=== PATIENT | female | born 1955 | race Caucasian/White ===

== ENCOUNTER → 2020-02-24 12:33 | Outpatient (CLI) | payer MEDICARE, SELFPAY ==
--- NOTE | ~2020-02-24 | MM_ITS ---
EXAMINATION: MM screening [facility] w [facility] HISTORY: Screening mammogram TECHNIQUE: Craniocaudal and mediolateral oblique 3-D tomosynthesis images were obtained and synthetic 2-D images were generated. CAD analysis was submitted and interpreted. COMPARISON: No prior mammogram is available for comparison at this institution. BREAST PARENCHYMAL COMPOSITION: There are scattered areas of fibroglandular density. FINDINGS: There is no evidence of suspicious mass, calcification, or architectural distortion to sugg est malignancy in either breast. There has been no suspicious interval change. Scattered benign calc ifications. IMPRESSION: 1. No mammographic evidence of malignancy. 2. Recommend routine screening mammography in one year. BI-RADS Category 2: Benign finding(s). Reviewed, dictated and finalized at location A.
== END ==
PROVIDERS: Visit Provider Nurse Practitioner Obstetrics & Gynecology
DX: Z12.31 Encounter for screening mammogram for malignant neoplasm of breast (principal)
CPT/HCPCS: 77063; 77067

== ENCOUNTER → 2021-11-10 13:51 | Outpatient (CLI) | payer MEDICARE, SELFPAY ==
--- NOTE | ~2021-11-10 | MM_ITS ---
EXAMINATION: MM screening [facility] BI w [facility]ora HISTORY: Screening mammogram TECHNIQUE: Craniocaudal and mediolateral oblique 3-D tomosynthesis images were obtained and synthetic 2-D images were generated. CAD analysis was submitted and interpreted. COMPARISON: 02/24/2020, 06/11/2018, 11/15/2017, 09/28/2017 BREAST PARENCHYMAL COMPOSITION: The breasts are almost entirely fatty. FINDINGS: Scattered benign-appearing calcifications are present. There is no suspicious mass, calcifi cation, or architectural distortion to suggest malignancy in either breast. There has been no suspici ous interval change. IMPRESSION: 1. No mammographic evidence of malignancy. 2. Recommend routine screening mammography in one year. BI-RADS Category 2: Benign finding(s). Reviewed, dictated and finalized at location A.
== END ==
PROVIDERS: PCP Internal Medicine; Visit Provider Internal Medicine
DX: Z12.31 Encounter for screening mammogram for malignant neoplasm of breast (principal)
CPT/HCPCS: 77063; 77067

== ENCOUNTER → 2023-01-22 15:27 | Outpatient (CLI) | payer MEDICARE, SELFPAY ==
--- NOTE | ~2023-01-22 | XR_ITS ---
EXAMINATION:XR_[id number], XR lumbar spine 2-3V, XR thoracic spine 2V DATE: 01/22/2023 15:56 INDICATION: Neck pain TECHNIQUE: 1. AP, lateral, lateral swimmers and odontoid views of the cervical spine are provided. 2. AP and lateral views of the thoracic spine were obtained 3. AP, lateral and coned-down lateral lumbosacral views of the lumbar spine were obtained. COMPARISON: None FINDINGS: Cervical spine: Straightening of the normal cervical lordosis. Odontoid is intact with moderate osteoarthritis at the atlantoaxial interval. Vertebral body heights are normal. Moderate disc height loss with prominent e ndplate osteophytes at C4-C5, C5-C6 and C6-7 and mild disc height loss at C3-C4. Multilevel severe ce rvical uncovertebral and moderate to severe facet osteoarthritis. Prevertebral soft tissues are norm al. Thoracic spine: Alignment is normal. Vertebral body heights are normal. Moderate disc height loss T10-T11 and mild di sc height loss at and mild degenerative endplate changes at multiple levels in the mid to lower thora cic spine. Visualized lungs are clear. Heart size is normal. Lumbar spine: 7 degrees lumbar levocurvature. Sagittal alignment is normal. Vertebral body heights are normal. Mode rate to severe disc height loss at L5-S1 and moderate disc height loss at L2-L3 and mild disc height loss at remaining lumbar levels. Severe bilateral lower lumbar facet osteoarthritis. Mild right and m oderate left sacroiliac osteoarthritis. IMPRESSION: 1. Moderate cervical and thoracic and moderate to severe lumbar spondylosis. Reviewed, dictated and finalized at location A. IMPRESSION: 1. Moderate cervical and thoracic and moderate to severe lumbar spondylosis. IMPRESSION: 1. Moderate cervical and thoracic and moderate to severe lumbar spondylosis.
== END ==
PROVIDERS: PCP Internal Medicine; Visit Provider Internal Medicine
DX: M47.892 Other spondylosis, cervical region (principal); M47.896 Other spondylosis, lumbar region
CPT/HCPCS: 72040; 72070; 72100

== ENCOUNTER 2023-02-09 13:39 | Outpatient (CLI) | payer MEDICARE, SELFPAY ==
--- NOTE | ~2023-02-09 | MR_ITS ---
EXAMINATION: MR lumbar spine wo con DATE: 02/09/2023 14:18 INDICATION: Dorsalgia, unspecified. TECHNIQUE: Magnetic resonance imaging (MRI) of the lumbar spine was performed without intravenous con trast. Sequences included sagittal T2-weighted FSE, sagittal T2-weighted FS FSE, sagittal T1-weighted FSE, and axial T2-weighted FSE. COMPARISON: Lumbar spine MRI 05/07/2012 FINDINGS: There is 6 degrees levocurvature of lumbar spine. There is 3 mm retrolisthesis of L2 on L3. Vertebral body heights are normal. There is mildly decreased disc height at L1-L2, moderately decrea sed disc height at L2-L3, severely decreased disc height at L3-L4, moderately decreased disc height a t L4-L5, and severely decreased disc height at L5-S1 with endplate remodeling. The distal spinal cord signal intensity is normal. The conus medullaris is at L1. The following disc levels are specificall y discussed: L1-L2: The disc is bulging and has an annular fissure. There is moderate right and mild left facet sabra int osteoarthritis. There is mild bilateral neural foraminal stenosis. There is mild central canal st enosis. L2-L3: The disc is bulging and has an annular fissure. There is moderate bilateral facet joint osteoa rthritis. There is mild bilateral neural foraminal stenosis. There is mild central canal stenosis. L3-L4: The disc is bulging. There is severe bilateral facet joint osteoarthritis. There is mild bilat eral neural foraminal stenosis. There is mild central canal stenosis. L4-L5: The disc is bulging and has an annular fissure. There is severe bilateral facet joint osteoart hritis. There is mild bilateral neural foraminal stenosis. There is mild central canal stenosis. L5-S1: The disc is bulging. There is severe bilateral facet joint osteoarthritis. There is mild bilat eral neural foraminal stenosis. There is mild central canal stenosis. IMPRESSION: 1. Severe lumbar spondylosis, worsened from 05/07/2012. Reviewed, dictated and finalized at location A.
== END 2023-02-09 13:40 | disposition home or self-care (01) ==
PROVIDERS: PCP Internal Medicine; Visit Provider Internal Medicine
DX: M47.896 Other spondylosis, lumbar region (principal)
CPT/HCPCS: 72148

== ENCOUNTER 2023-02-15 12:30 | Outpatient (RCR) | payer MEDICARE, SELFPAY ==
--- NOTE | 2023-01-22 16:24 | OPREHPOC ---
Outpatient Therapy Plan of Care This is a Multidisciplinary Plan of Care that may contain components documented by all disciplines (PT, OT, and ST.) PT Problem 1 PT Problem #1 Knowledge Deficit PT Goal 1 Goal Pt to be IND with issued HEP Target Visit 8 PT Problem 2 PT Problem #2 Pain PT Goal 1 Goal Pt to report pain no greater than 3/10 in the last week Target Visit 8 PT Goal 2 Goal Pt to report 75% improvement in overall symptoms Target Visit 8 PT Problem 3 PT Problem #3 Impaired Range of Motion PT Goal 1 Goal Pt to report no increase in pain with R hip flexion Target Visit 8 PT Goal 2 Goal Pt to demonstrate active lumbar ROM that is pain free Target Visit 8 PT Problem 4 PT Problem #4 Impaired Gait PT Goal 1 Goal Pt to return to ambulation without AD Target Visit 8 PT Goal 2 Goal Pt to improve 2 min walk distance from 215ft to 300ft Target Visit 8 PT Problem 5 PT Problem #5 Impaired Functional Mobil PT Goal 1 Goal Pt to be able to lift 10lb box from ground level Target Visit 8 PT Goal 2 Goal Pt to ascend/descend stairs with a reciprocal pattern. Target Visit 8
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
--- NOTE | 2023-01-30 13:28 | PCPTNOTE ---
Patient called & cancelled scheduled appointment this date due to getting confused about her appointment time and not being able to make it.
--- NOTE | 2023-02-09 11:34 | PCPTNOTE ---
Patient no showed to appointment this date. Called and spoke with patient who states she got her times confused. Offered patient another time slot same day but she stated she cannot make it.
--- NOTE | 2023-02-19 12:58 | PCPTNOTE ---
Patient did not show up for scheduled appointment this date. Called and spoke with patient and she states she just forgot. She has been rescheduled but requested this be after she sees the neurosurgeon.
--- NOTE | 2023-03-12 13:20 | PCPTNOTE ---
Patient called & cancelled scheduled appointment this date, she states she saw her neurosurgeon but is still waiting to hear from her as to what she should do. Has not rescheduled at this time.
--- NOTE | 2023-04-16 14:40 | PCPTNOTE ---
Patient called & cancelled scheduled appointment this date due to being sick. She has been rescheduled.
== END 2023-04-20 08:05 | disposition still patient (30) ==
LOC: ANHGOSHPT 12:30
PROVIDERS: PCP Internal Medicine; Visit Provider Internal Medicine
DX: M54.2 Cervicalgia (principal); M54.9 Dorsalgia, unspecified
CPT/HCPCS: 97110; 97140; 97161; 97530; 99199

== ENCOUNTER 2023-03-09 14:01 | Outpatient (CLI) | payer MEDICARE, SELFPAY ==
--- NOTE | ~2023-03-09 | XR_ITS ---
XR hip RT min 2V DATE: 03/09/2023 14:28 INDICATION: Right hip pain TECHNIQUE: AP and lateral views COMPARISON: None FINDINGS: There is mild right hip joint space narrowing and moderate spurring of the right femoral he ad consistent with moderately prominent right hip osteoarthritis. No fracture, dislocation, avascular necrosis or bone destruction of the right hip is detected. IMPRESSION: Moderately prominent right hip osteoarthritis Reviewed, dictated and finalized at location B.
--- NOTE | ~2023-03-09 | XR_ITS ---
XR lumbar spine min 4V DATE: 03/09/2023 14:28 INDICATION: Spondylosis without myelopathy or radiculopathy TECHNIQUE: AP, lateral and coned lateral lumbosacral views. Standing flexion and extension lateral vi ews COMPARISON: 02/09/2023 MR lumbar spine FINDINGS: Mild lumbar levoscoliosis. The included lower thoracic and lumbar pedicles are intact. No fracture or bone destruction is eviden t. There is osteopenia. Moderate degenerative disc disease and spurring at L1-2. There is moderately severe degenerative dise ase at the remaining lumbar and lumbosacral interspaces with associated minimal retrolisthesis at L2- 3. No instability on flexion or extension. Degenerative changes at the mid and lower lumbar apophyseal joints. No anterolisthesis. The sacroiliac joints are intact, with osteoarthritic change. IMPRESSION: Multilevel degenerative disc disease Reviewed, dictated and finalized at location B.
== END 2023-03-09 14:02 | disposition home or self-care (01) ==
PROVIDERS: PCP Internal Medicine; Visit Provider Neurological Surgery
DX: M47.816 Spondylosis without myelopathy or radiculopathy, lumbar region (principal); M51.36 Other intervertebral disc degeneration, lumbar region; M16.11 Unilateral primary osteoarthritis, right hip
CPT/HCPCS: 72110; 73502

== ENCOUNTER 2023-05-24 11:00 | Outpatient (RCR) | payer MEDICARE, SELFPAY ==
--- NOTE | 2023-04-25 15:22 | OPREHPOC ---
Outpatient Therapy Plan of Care This is a Multidisciplinary Plan of Care that may contain components documented by all disciplines (PT, OT, and ST.) PT Problem 1 PT Problem #1 Knowledge Deficit PT Goal 1 Goal Pt to be IND with issued HEP Target Visit 4 PT Problem 2 PT Problem #2 Pain PT Goal 1 Goal Pt to report pain no greater than 3/10 in the last week Target Visit 4 PT Goal 2 Goal Pt to report 75% improvement in overall symptoms Target Visit 4 PT Problem 3 PT Problem #3 Impaired Range of Motion PT Goal 1 Goal Pt to improve passive hip extension to 10 deg Target Visit 4 PT Problem 4 PT Problem #4 Impaired Functional Mobil PT Goal 1 Goal Pt to be able to lift 10lb box from ground level Target Visit 4 PT Goal 2 Goal Pt to ascend/descend stairs with a reciprocal pattern. Target Visit 4
--- NOTE | 2023-04-25 15:23 | PTOPREEVAL ---
Assessment and note entered by Hussain Belcher, PT, DPT Evaluation Information Assessment Status Re-evaluation Diagnosis cervicalgia and dorsalgia (M54.9 and M54.2) Subjective Information Pt returns to today for a re-evaluation after a follow up with neurology list the pt requested. Pt states she had 2 injections recently, one in the back and in her R hip. She states the injection did not work for more than a couple of days. She states after getting her injections she fell twice d/t loss of balance. Pt reports poor compliance with her HEP while not being in therapy. She states her low back pain and her hip pain is really messing with her balance. She states she can work for an hour on her feet before she needs to sit down and rest. Reported Pain Level Pain Score 3: Self Report Assessment PT Clinical Summary Taniya Juarez presents to therapy today for her re- evaluation after a 2 month hold on therapy while waiting for a neuro consult. Today she demonstrates improve gait speed and pain reports compared to her initial visit and prior to her injections. Her hips were evaluated today as her doctor told her it is not referred pain from her low back but rather hip OA. She demonstrates decreased R hip motion compared to her L side, especially hip extension which is negatively impacting her gait. Continuation of skilled therapy services are indicated to improve pain reports, improve hip ROM and strength, and to improve overall mobility. Plan of Care Interventions Electrical Stimulation,Gait Training,Hot Pack/Cold Pack,Manual Therapy,Neuro Re-education,Patient/ Caregiver Educati,Therapeutic Activities, Therapeutic Exercise PT Services Indicated Yes Treatment Frequency and 1x/wk for 4 visits Duration These treatments will address the objective and functional deficits as defined above. The patient will be advanced safely and appropriately in order for the patient to progress towards his/her prior level of function. Additional exercises will be introduced and as well as a comprehensive home exercise program upon discharge, if needed, ?to ensure carryover of functional gains achieved in the clinic. This treatment plan has been reviewed and agreement upon by the patient.
--- NOTE | 2023-05-24 11:56 | PTOPDC ---
Assessment and note entered by Hussain Belcher, PT, DPT Evaluation Information Assessment Status Discharge Diagnosis cervicalgia and dorsalgia (M54.9 and M54.2) Subjective Information Pt states her hip is doing much better compared to when she started therapy. She states her pain is almost completly gone. Reported Pain Level Pain Score 1: Self Report Assessment PT Clinical Summary Taniya Juarez presents to therapy today for her progress report following 9 visits of skilled therapy to treat her low back and R hip pain. Today she demonstrates improve gait speed and pain reports compared to a month ago. She demonstrates near normal hip ROM passively with extension still being the most limited. She reports 75% improvement in overall symptoms. She has met or progressed well towards her therapy goals and no longer requires skilled services, she will be discharged at this time. She was instructed to continue her HEP upon discharge Plan of Care PT Services Indicated No
== END 2023-05-24 12:51 | disposition home or self-care (01) ==
LOC: ANHGOSHPT 11:00
PROVIDERS: PCP Internal Medicine; Visit Provider Internal Medicine
DX: M54.2 Cervicalgia (principal); M54.9 Dorsalgia, unspecified
CPT/HCPCS: 97110; 97164; 97530

== ENCOUNTER 2024-01-16 13:28 | Outpatient (CLI) | payer MEDICARE, SELFPAY ==
--- NOTE | ~2024-01-16 | MR_ITS ---
EXAMINATION: MR cervical spine wo con DATE: 01/16/2024 14:00 INDICATION: Cervical radicular pain. TECHNIQUE: Magnetic resonance imaging (MRI) of the cervical spine was performed without intravenous c ontrast. COMPARISON: Cervical spine MRI 05/07/2012 FINDINGS: There is kyphosis of cervical spine. Vertebral body heights are normal. There is mildly dec reased disc height at C3-C4 and severely decreased disc height from C4-C5 through C6-C7. There is cys tic dilatation of the nerve root sleeve on the right at T1-T2. The spinal cord signal intensity is no rmal. The following disc levels are specifically discussed: C2-C3: The disc does not extend beyond the endplate margin. There is no uncovertebral joint osteoarth ritis. There is moderate right and severe left facet joint osteoarthritis. There is mild left neural foraminal stenosis. There is no central canal stenosis. C3-C4: The disc does not extend beyond the endplate margin. There is mild bilateral uncovertebral goldie nt osteoarthritis. There is severe bilateral facet joint osteoarthritis. There is mild bilateral neur al foraminal stenosis. There is no central canal stenosis. C4-C5: The disc is bulging. There is severe bilateral uncovertebral joint osteoarthritis. There is se kalpesh bilateral facet joint osteoarthritis. There is moderate bilateral neural foraminal stenosis. The re is mild central canal stenosis with ventral indentation of the spinal cord. C5-C6: The disc is bulging. There is severe bilateral uncovertebral joint osteoarthritis. There is mo derate right and severe left facet joint osteoarthritis. There is mild right and moderate left neural foraminal stenosis. There is mild central canal stenosis. C6-C7: The disc is bulging. There is severe bilateral uncovertebral joint osteoarthritis. There is se kalpesh bilateral facet joint osteoarthritis. There is mild bilateral neural foraminal stenosis. There i s mild central canal stenosis. C7-T1: There is a right central protrusion. There is no uncovertebral joint osteoarthritis. There is severe bilateral facet joint osteoarthritis. There is mild left neural foraminal stenosis. There is n o central canal stenosis. IMPRESSION: 1. Severe cervical spondylosis, worsened from 05/07/2012. Reviewed, dictated and finalized at location A.
== END 2024-01-16 13:29 ==
LOC: MICIMG 13:29
PROVIDERS: PCP Internal Medicine; Visit Provider Nurse Practitioner Family
DX: M47.22 Other spondylosis with radiculopathy, cervical region (principal)
CPT/HCPCS: 72141

== ENCOUNTER 2024-10-12 12:22 | Emergency (ER) | payer MEDICARE, SELFPAY ==
--- NOTE | 2024-10-12 12:23 | ED.SKABFB ---
HPI - Skin/Abscess/Foreign Bdy General Chief complaint: Wound/Laceration Stated complaint: Left Index Finger Splinter Time Seen by Provider: 10/12/24 12:23 Source: patient Mode of arrival: ambulatory Limitations: no limitations History of Present Illness HPI narrative: Taniya is a 69-year-old female patient presenting to the clinic today with complaints of a possible splinter in the left index finger. She reports she thinks she got this from a picnic table yesterday. Tetanus shot is unknown. Has pain and swelling to the distal finger. Denies fevers, chills, body aches. Related Data Home Medications ?Medication ?Instructions ?Recorded ?Confirmed ?Last Taken ?Type aspirin 81 mg tablet,delayed 81 mg PO DAILY 07/04/19 04/21/24 Unknown History release (Adult Low Dose Aspirin) cetirizine 10 mg tablet (Zyrtec) 10 mg PO DAILY PRN 07/04/19 04/21/24 Unknown History Allergies Allergy/AdvReac Type Severity Reaction Status Date / Time No Known Allergies Allergy Unknown Verified 10/12/24 12:28 Review of Systems Review of Systems: Pertinent positives per HPI. Patient denies any fever, chills, rash, headache, visual changes, dizziness, cough, shortness of breath, chest pain, palpitations, nausea, vomiting, diarrhea, constipation, abdominal pain, or any urinary issues. [facility] Past Medical History Medical History Convulsion Surgical History Surgical History Status post right foot surgery Family History Family History Mother Cerebrovascular accident Diabetes mellitus Hypertension Father Malignant neoplasm of prostate Family history of malignant neoplasm of bone, Onset Age: 89 Sibling Diabetes mellitus Hypertension Social History Social History Smoking status: Former smoker Tobacco type: cigarettes Second hand tobacco smoke exposure: Yes Smoking end date: 06/04/84 Alcohol intake: current Alcohol use details: rarely Substance use: current Substance use type: marijuana Lack of Transportation: No Lack of Food: Never True Current Housing: I Have Housing Concerned About Future Housing: No Difficulty Paying Gas/Electric Bills: No Difficulty Paying for Meds: No Currently Unemployed: No Education: Bachelor's Degree Difficulty w/ Childcare or Family Care: No Living arrangements: with family Occupation/Education: retired Additional occupation/education comments: [employer] Gender identity (if verbalized by the patient): Female Comments At the time of my signature, I reviewed and agree with the nursing past medical, surgical, social, and family history. There is no relevant family history pertinent to the patient complaint. Exam Narrative: General: Well-developed, well nourished, in no apparent distress Head: Normocephalic, atraumatic. Cardio: Regular rate and rhythm, s1 and s2 normal, no murmur appreciated. Resp: Clear to auscultation bilaterally, no rhonchi, rales, wheezing or rubs. Integumentary: [place], warm, and dry, shadowing of foreign body seen when using light to the left distal medial index finger. Localized swelling with blister to the medial distal finger. Incision and drainage of blister/finger to search for foreign body and no foreign body was palpable or visualized. Course Course Emergency Course: Portions of this record may have been created with voice recognition software. Level of Care: Express Care Visit Vital Signs Vital signs: Vital Signs Temperature 36.2 C L 10/12/24 12:35 Pulse Rate 96 10/12/24 12:35 Respiratory Rate 20 10/12/24 12:35 Blood Pressure 165/101 H 10/12/24 12:35 Pulse Oximetry 97 10/12/24 12:35 Oxygen Delivery Room Air 10/12/24 12:35 Temperature 36.2 C L 10/12/24 12:35 Pulse Rate 96 10/12/24 12:35 Respiratory Rate 20 10/12/24 12:35 Blood Pressure 165/101 H 10/12/24 12:35 Pulse Oximetry 97 10/12/24 12:35 Oxygen Delivery Room Air 10/12/24 12:35 Vital signs reviewed Procedures Abscess I/D finger: Date of Incision: 10/12/24 Side (if applicable): left (Index) Local Anesthetic: lidocaine 1% Amount of anesthesia used (mL): 2 Technique: incised with #15 blade Amount of fluid expressed (mL): 1 Irrigation: No Packing used?: none I&D Results: Pus and Blood Abcess I&D Additional Comments: Verbal consent obtained for incision and drainage. Risk and benefits explained and patient voiced understanding. Area was cleansed with betadine. Area was prepped and draped using sterile technique. 27 gauge needle was then used to instill (2) ml of lidocaine without epi into the proximal phalanx a creating a digital block. Patient tolerated well and anesthesia was appropriate. An 15 blade scalpel was then used to make a 0.5cm incision over the possible foreign body site. White bloody exudate expressed from blister. No palpable foreign body or visualized foreign body was seen after incision. Patient tolerated procedure well. Triple Antibiotic ointment and dressing was applied Discharge Plan Discharge Clinical Impression: Puncture wound Finger, blister, infected Qualifiers: Encounter type: initial encounter Qualified Code(s): S60.429A - Blister (nonthermal) of unspecified finger, initial encounter Patient Disposition: Home Condition: Stable Instructions: Antibiotic Form, Puncture Wound (ED), Wound Infection (ED) Additional Instructions: Incision and drainage was performed-no obvious foreign body was visualized Take cephalexin as prescribed May do Epson salt soaks for 4 times daily May take Tylenol/ibuprofen as needed for pain Follow-up with your primary care doctor in 3 days for wound check Patient Language: Togolese Prescriptions: New cephalexin 500 mg capsule 500 mg PO Q8H 7 Days Qty: 21 0RF No Action aspirin [Adult Low Dose Aspirin] 81 mg tablet,delayed release (DR/EC) 81 mg PO DAILY cetirizine [Zyrtec] 10 mg tablet 10 mg PO DAILY PRN levetiracetam [Keppra] 750 mg tablet 750 mg PO Q12H Qty: 180 6RF levothyroxine 75 mcg tablet 75 mcg PO DAILY Qty: 90 2RF tramadol 50 mg tablet 50 mg PO Q12H PRN (Reason: pain) Qty: 60 0RF atorvastatin 20 mg tablet 20 mg PO DAILY Qty: 90 3RF pantoprazole [Protonix] 40 mg tablet,delayed release (DR/EC) 40 mg PO QAM Qty: 90 3RF losartan 100 mg tablet 100 mg PO DAILY Qty: 100 3RF paroxetine HCl 20 mg tablet 20 mg PO DAILY Qty: 90 2RF hydrochlorothiazide 25 mg tablet 25 mg PO DAILY Qty: 90 2RF diltiazem HCl 240 mg capsule,extended release 24hr 240 mg PO DAILY Qty: 90 2RF Follow-up/Referrals: Willi Bowling DO [Primary Care Provider] - Time of Disposition: 13:28 Quality NIHSS Nursing Documentation ED NIHSS nursing documentation: reviewed/agree
[2024-10-12 12:35] VITALS: BP 165/101; PULSE 96; RESP 20; TEMP 36.2; O2SAT 97
[2024-10-12] MEDS: LIDOCAINE 1% LOCAL INJ 2 ML AMPUL 4 ML INFILTRATE (12:54)
[2024-10-12] MEDS: TETANUS,DIPHTHERIA,AC PERTUSSIS ADULT (0.5 ML) BOOSTRIX IM (12:55)
== END 2024-10-12 13:45 | disposition home or self-care (01) ==
PROVIDERS: Emergency Provider Nurse Practitioner Family; PCP Internal Medicine
DX: S61.231A Puncture wound without foreign body of left index finger without damage to nail, initial encounter (principal); W45.8XXA Other foreign body or object entering through skin, initial encounter; S60.421A Blister (nonthermal) of left index finger, initial encounter; L08.9 Local infection of the skin and subcutaneous tissue, unspecified; Z23 Encounter for immunization; Z87.891 Personal history of nicotine dependence; R56.9 Unspecified convulsions; Z79.82 Long term (current) use of aspirin
CPT/HCPCS: 10140; 90471; 90715; 99213; G0463; J2003

== ENCOUNTER 2024-12-03 11:24 | Emergency (ER) | payer MEDICARE, SELFPAY ==
[2024-12-03 11:42] VITALS: BP 144/86; PULSE 84; RESP 16; TEMP 36.3; O2SAT 98
--- NOTE | 2024-12-03 11:49 | ED_ITS ---
HPI - Skin/Abscess/Foreign Bdy General Chief complaint: Skin/Abscess/Foreign Body Stated complaint: CAT BITE Time Seen by Provider: 12/03/24 11:49 Source: patient Mode of arrival: ambulatory Limitations: no limitations History of Present Illness HPI narrative: 69-year-old female presents with complaint of cat bite to left hand. Was bit by her cat approximately 3 days ago. Reports redness and swelling started less than 24 hours from time of cat bite. Reports chills and fatigue today. Tetanus up-to-date. CMS intact. All systems reviewed and negative except as noted above. Related Data Home Medications ?Medication ?Instructions ?Recorded ?Confirmed ?Last Taken ?Type aspirin 81 mg tablet,delayed 81 mg PO DAILY 07/04/19 11/25/24 Unknown History release (Adult Low Dose Aspirin) cetirizine 10 mg tablet (Zyrtec) 10 mg PO DAILY PRN 07/04/19 11/25/24 Unknown History Allergies Allergy/AdvReac Type Severity Reaction Status Date / Time No Known Allergies Allergy Unknown Verified 12/03/24 11:31 Review of Systems Review of Systems: CONSTITUTIONAL: Denies fever, chills, or sweats. EYES: Denies visual changes, redness, or discharge. ENT: Denies rhinorrhea, congestion, sore throat, or otalgia. CARDIOVASCULAR: Denies chest pain, palpitations, or edema. RESPIRATORY: Denies cough or dyspnea. GASTROINTESTINAL: Denies abdominal pain, nausea, vomiting, or diarrhea. GENITOURINARY: Denies dysuria or hematuria. SKIN: Reports cat bite to left hand with redness and swelling MUSCULOSKELETAL: Denies back pain, joint pain, or myalgia. NEUROLOGIC: Denies headache, numbness, or weakness. PSYCHIATRIC: Denies anxiety or depression. All other systems reviewed are negative, except as documented in HPI. [facility] Past Medical History Medical History Convulsion Surgical History Surgical History Status post right foot surgery Family History Family History Mother Cerebrovascular accident Diabetes mellitus Hypertension Father Malignant neoplasm of prostate Family history of malignant neoplasm of bone, Onset Age: 89 Sibling Diabetes mellitus Hypertension Social History Social History (Updated 11/25/24 @ 15:15 by Tiana Andrews [facility]) Smoking status: Former smoker Tobacco type: cigarettes Second hand tobacco smoke exposure: Yes Smoking end date: 06/04/84 Alcohol intake: current Alcohol use details: rarely Substance use: current Substance use type: marijuana Do You Feel Safe in your Home?: Yes Lack of Transportation: No Lack of Food: Never True Current Housing: I Have Housing Concerned About Future Housing: No Difficulty Paying Gas/Electric Bills: No Difficulty Paying for Meds: No Currently Unemployed: No Education: Bachelor's Degree Difficulty w/ Childcare or Family Care: No Living arrangements: with family Occupation/Education: retired Additional occupation/education comments: [employer] Gender identity (if verbalized by the patient): Female Comments At time of signature, agree with nursing past medical, surgical, social and family history. There is no relevant family history pertinent to the presenting complaint. Exam Narrative: GENERAL: This is a well-nourished, well-developed patient, in no apparent distress. HEAD: normocephalic, atraumatic. EYES: PERRL. Sclera clear/white. Vision is grossly intact. EARS: External ears normal NOSE: External nose normal NECK: Neck supple, non-tender without lymphadenopathy, masses or thyromegaly. CARDIOVASCULAR: Regular rate and rhythm without murmurs, gallops, or rubs. RESPIRATORY: Clear to auscultation. Breath sounds equal bilaterally. No wheezes, rales, or rhonchi. SKIN: warm, Dry, intact with no suspicious lesions or rash, good texture and turgor. Erythema, warmth, swelling to dorsal aspect of left hand without finger involvement. CMS intact. Tender on palpation. No fluctuance concerning for abscess. NEURO: awake, alert, and oriented to person, place and time. There were no obvious focal neurologic abnormalities. EXTREMITIES: No joint tenderness, effusion, or edema noted. Course Course Level of Care: Express Care Visit Vital Signs Vital signs: Vital Signs Temperature 36.3 C L 12/03/24 11:42 Pulse Rate 84 12/03/24 11:42 Respiratory Rate 16 12/03/24 11:42 Blood Pressure 144/86 H 12/03/24 11:42 Pulse Oximetry 98 12/03/24 11:42 Temperature 36.3 C L 12/03/24 11:42 Pulse Rate 84 12/03/24 11:42 Respiratory Rate 16 12/03/24 11:42 Blood Pressure 144/86 H 12/03/24 11:42 Pulse Oximetry 98 12/03/24 11:42 Reviewed MDM - Skin/Abscess/Foreign Bdy MDM Narrative Medical decision making narrative: Cat bite to left hand with obvious infection. Patient afebrile reports chills and fatigue. Will give ceftriaxone IM at Express Care and discharge with Augmentin prescription. CMS intact. Instructed to go to ER for any worsening of symptoms Discharge Plan Discharge Clinical Impression: Cat bite of left hand with infection Qualifiers: Encounter type: initial encounter Qualified Code(s): S61.452A - Open bite of left hand, initial encounter Patient Disposition: Home Condition: Stable Instructions: Animal Bite (ED) Additional Instructions: Take antibiotic as prescribed until gone. Take ibuprofen or Tylenol every 6-8 hours as needed for pain and fever. Keep left hand elevated when at rest. May apply ice as needed for pain. If not improving see your primary care physician. For any worsening of symptoms, change and range of motion, numbness go to the ER. Patient Language: [place] Prescriptions: New amoxicillin-pot clavulanate 875-125 mg tablet 1 tablet PO Q12H 10 Days Qty: 20 0RF No Action aspirin [Adult Low Dose Aspirin] 81 mg tablet,delayed release (DR/EC) 81 mg PO DAILY cetirizine [Zyrtec] 10 mg tablet 10 mg PO DAILY PRN levetiracetam [Keppra] 750 mg tablet 750 mg PO Q12H Qty: 180 6RF levothyroxine [Levoxyl] 88 mcg tablet 88 mcg PO DAILY Qty: 90 2RF valsartan 320 mg tablet 320 mg PO DAILY Qty: 90 2RF atorvastatin 20 mg tablet 20 mg PO DAILY Qty: 90 3RF paroxetine HCl 20 mg tablet 20 mg PO DAILY Qty: 90 2RF hydrochlorothiazide 25 mg tablet 25 mg PO DAILY Qty: 90 2RF diltiazem HCl 240 mg capsule,extended release 24hr 240 mg PO DAILY Qty: 90 2RF pantoprazole [Protonix] 40 mg tablet,delayed release (DR/EC) 40 mg PO QAM Qty: 90 3RF Follow-up/Referrals: Willi Bowling DO [Primary Care Provider] - Time of Disposition: 12:23
[2024-12-03] MEDS: cefTRIAXone 1 GM, LIDOCAINE 1% LOCAL INJ 2.1 ML IM (12:10)
== END 2024-12-03 12:25 | disposition home or self-care (01) ==
PROVIDERS: Emergency Provider Nurse Practitioner Family; PCP Internal Medicine
DX: S61.452A Open bite of left hand, initial encounter (principal); L08.9 Local infection of the skin and subcutaneous tissue, unspecified; Z87.891 Personal history of nicotine dependence; F12.90 Cannabis use, unspecified, uncomplicated; Z79.82 Long term (current) use of aspirin
CPT/HCPCS: 96372; 99213; G0463; J0696; J2003

== ENCOUNTER 2025-05-19 15:43 | Outpatient (CLI) | payer MEDICARE, SELFPAY ==
--- NOTE | ~2025-05-19 | MM_ITS ---
EXAMINATION: MM screening [facility] BI w [facility]ora HISTORY: Screening TECHNIQUE: Craniocaudal and mediolateral oblique 3-D tomosynthesis images were obtained and synthetic 2-D images were generated. CAD analysis was submitted and interpreted. COMPARISON: Comparison to multiple prior studies sequentially, with oldest reviewed study dated 12/10/2014. BREAST PARENCHYMAL COMPOSITION: Not Dense: There are scattered areas of fibroglandular density. FINDINGS: There is no evidence of suspicious mass, calcification, or architectural distortion to suggest malignancy in either breast. Scattered benign-appearing calcifications are present. IMPRESSION: 1. No mammographic evidence of malignancy. 2. Recommend routine screening mammography in one year. BI-RADS Category 2: Benign finding(s). Reviewed, dictated and finalized at location A. [employer]
== END 2025-05-19 15:44 | disposition home or self-care (01) ==
LOC: MICIMG 15:44
PROVIDERS: PCP Internal Medicine; Visit Provider Internal Medicine
DX: Z12.31 Encounter for screening mammogram for malignant neoplasm of breast (principal)
CPT/HCPCS: 77063; 77067